=== PATIENT | male | born 1995 | race Caucasian/White ===

== ENCOUNTER 2018-04-30 19:27 | Inpatient (IN) | payer SELFPAY ==
[2018-04-30 19:30] VITALS: BMI 37.6
[2018-04-30] MEDS ORDERED: Sodium Chloride 0.9% 1,000 ML IV STA (19:35)
[2018-04-30 20:02] LABS: INR 1.03; PARTIAL THROMBOPLASTIN TIME 22.5 Seconds (25.1-36.5); PROTHROMBIN TIME 11.8 SECONDS (9.4-12.5)
[2018-04-30 20:09] LABS: ALB/GLOB RATIO 1.6 (1.1-1.8); ALBUMIN 4.6 g/dL (3.0-4.8); ALT/SGPT 170 U/L (7-56); AST/SGOT 150 U/L (17-59); BLOOD UREA NITROGEN 16 mg/dL (7-21); CALCIUM 8.6 mg/dL (8.4-10.5); GFR AFRICAN-AMERICAN > 60; GFR NON-AFRICAN AMERICAN > 60
[2018-04-30 20:10] LABS: ARTERIAL BLOOD GAS HCO3 17.1 mmol/L (21-28); ARTERIAL BLOOD GAS O2 CAPACITY 20.4 mL/dl (16-24); ARTERIAL BLOOD GAS O2 CONTENT 20.2 ML/dl (15-23); ARTERIAL BLOOD GAS O2 SAT 99.1 % (95-98); ARTERIAL BLOOD GAS PCO2 47 mm/Hg (35-45); ARTERIAL BLOOD GAS TCO2 18.5 mmol.L (22-28)
--- NOTE | 2018-04-30 20:11 | ED PDOC ---
Arrival/HPI - General Chief Complaint: Substance Abuse Time Seen by Provider: 04/30/18 19:34 Historian: Patient EM Caveat: Altered Mental Status - History of Present Illness Narrative History of Present Illness (Text): 23 y/o M w/ no significant history presenting with altered mental status. Patient was brought in by EMS after a call(patient's friend)as a result of the patient being found at home unresponsive. The patient was give 4mg of intranasal Narcan that initially was unsuccessful, but eventually caused the patient to awaken. According to EMS, there was no bags of heroin or other illicit substances present at the house. A more complete HPI is unable to be obtained due to the patient's clinical condition Time/Duration: Prior to Arrival Symptom Course: Intermittent Quality: Unable to Describe Severity Level: Moderate Activities at Onset: Rest Context: Home Past Medical History - Provider Review Nursing Documentation Reviewed: Yes - Travel History Have you recently traveled outside [place] w/in the past 3 mons?: No - Infectious Disease Hx of Infectious Diseases: None - Tetanus Immunization Tetanus Immunization: Other - Past Medical History Past Medical History: No Previous - Psychiatric Hx Depression: No Hx Emotional Abuse: No Hx Physical Abuse: No Hx Substance Use: Yes - Past Surgical History Past Surgical History: No Previous - Anesthesia Hx Anesthesia: No - Suicidal Assessment Feels Threatened In Home Enviroment: No Family/Social History - Physician Review Nursing Documentation Reviewed: Yes Family/Social History: Unknown Family HX Smoking Status: Light Smoker < 10 Cigarettes Daily Hx Alcohol Use: Yes Frequency of alcohol use: Socially Hx Substance Use: Yes Substance used: marijuana; heroine Hx Substance Use Treatment: No Allergies/Home Meds Allergies/Adverse Reactions: Allergies No Known Allergies Allergy (Verified 01/12/14 13:56) Review of Systems - Review of Systems Systems not reviewed;Unavailable: Altered Mental Status Physical Exam Vital Signs Reviewed: Yes Vital Signs Pulse Resp BP Pulse Ox 04/30/18 21:57 108 H 23 122/51 L 100 04/30/18 19:40 112 H 16 102/83 79 L Blood Pressure: Normal Pulse: Tachycardic Respiratory Rate: Normal Appearance: Positive for: Non-Toxic, Comfortable Mental Status: Positive for: Confused - Systems Exam Head: Present: Atraumatic, Normocephalic Pupils: Present: Sluggish Extroacular Muscles: Present: EOMI Conjunctiva: Present: Normal Mouth: Present: Moist Mucous Membranes Neck: Present: Normal Range of Motion. No: Meningeal Signs, MIDLINE TENDERNESS Respiratory/Chest: Present: Clear to Auscultation, Good Air Exchange. No: Respiratory Distress Cardiovascular: Present: Regular Rate and Rhythm, Normal S1, S2 Abdomen: Present: Normal Bowel Sounds. No: Tenderness, Distention, Peritoneal Signs Upper Extremity: Present: Normal Inspection Skin: Present: Warm, Dry, Normal Color, Other (No track marsh seen within antecubital fossa) Psychiatric: Present: Lethargic Medical Decision Making ED Course and Treatment: Impression 23M w/ h/o substance abuse presenting for heroin overdose Differential Diagnoses Includes But is not Limited to: Opiate Intoxication Sepsis Plan --Labs --IVF --CXR --CT head W/O contrast --UA --UDS 04/30/18 21:33 Labs reviewed with leukocytosis noted to 15, ABG consistent with metabolic acidosis. Zosyn ordered. Patient noted to desaturate to mid 80s off non- rebreather. 0.4mg Narcan given. Spoke to Dr. Price(copra processor) who will come down to see the patient. 04/30/18 21:37 Dr. Levy evaluates patient and accepts patient onto his service. He requests Narcan drip for now. CT Head Without Intravenous Contrast reviewed by radiologist, shows: Date of Exam: 30 Apr 2018 EDT IMPRESSION: No acute intracranial abnormality. EKG: Ordered, reviewed, and independently interpreted the EKG. Interpretation : Sinus tachycardia at 118. - Lab Interpretations Microbiology Results: Microbiology Results 04/30/18 21:18 Blood Blood Culture - Preliminary NO GROWTH AFTER 24 HOURS 04/30/18 20:53 Blood Blood Culture - Preliminary NO GROWTH AFTER 24 HOURS Lab Results: 04/30/18 19:38 04/30/18 19:38 Lab Results 04/30/18 21:16: pO2 79 H, VBG pH 7.17 L*, VBG pCO2 54.0, VBG HCO3 19.7 L, VBG O2 Sat (Calc) 95.1 H, VBG Base Excess -9.2 L 04/30/18 20:00: pCO2 47 H, pO2 125.0 H, HCO3 17.1 L, ABG pH 7.17 L*, ABG Total CO2 18.5 L, ABG O2 Saturation 99.1 H, ABG O2 Content 20.2, ABG Base Excess - 11.4 L, ABG Hemoglobin 15.0, ABG Carboxyhemoglobin 3.6 H, POC ABG HHb (Measured ) 0.9, ABG Methemoglobin 0.7, ABG O2 Capacity 20.4, Hgb O2 Saturation 94.8 L, FiO2 100.0 04/30/18 19:38: Sodium 142, Potassium 3.4 L, Chloride 104, Carbon Dioxide 14 L, Anion Gap 27 H, BUN 16, Creatinine 1.2, Est GFR ( Amer) > 60, Est GFR ( Non-Af Amer) > 60, Random Glucose 269 H, Calcium 8.6, Total Bilirubin 0.3, AST 150 H, ALT 170 H, Alkaline Phosphatase 74, Troponin I < 0.01, Total Protein 7.5 , Albumin 4.6, Globulin 2.9, Albumin/Globulin Ratio 1.6 04/30/18 19:38: PT 11.8, INR 1.03, APTT 22.5 L 04/30/18 19:38: WBC 15.5 H, RBC 5.05, Hgb 15.2, Hct 46.4, MCV 91.9, MCH 30.1, MCHC 32.8, RDW 13.1, Plt Count 216, MPV 11.6 H, Gran % 41.7 L, Lymph % (Auto) 51.7 H, [place] % (Auto) 4.6, Eos % (Auto) 1.1 L, Baso % (Auto) 0.9, Gran # 6.48, Lymph # (Auto) 8.0 H, [place] # (Auto) 0.7 H, Eos # (Auto) 0.2, Baso # (Auto) 0.14 - RAD Interpretation Radiology Orders: 04/30/18 21:06 HEAD W/O CONTRAST [CT] Stat CHEST PORTABLE [RAD] Stat Slitter And Rewinder: Radiologist - EKG Interpretation Interpreted by ED Physician: Yes Type: 12 lead EKG - Medication Orders Current Medication Orders: Discontinued Medications Sodium Chloride (Sodium Chloride 0.9%) 1,000 mls @ 999 mls/hr IV .Q1H1M STA Stop: 04/30/18 20:35 Last Admin: 04/30/18 19:41 Dose: 999 mls/hr eMAR Start Stop Document 04/30/18 19:41 IT (Rec: 04/30/18 19:41 IT [id number]) Intravenous Solution Start Date 04/30/18 Start Time 19:41 Piperacillin Sod/Tazobactam Sod (Zosyn 4.5 Gm In Ns 100ml) 4.5 gm in 100 mls @ 200 mls/hr IVPB STAT STA PRN Reason: Protocol Stop: 04/30/18 21:36 Last Admin: 04/30/18 22:10 Dose: 200 mls/hr eMAR Start Stop Document 04/30/18 22:10 IT (Rec: 04/30/18 22:11 IT [id number]) Intravenous Solution Start Date 04/30/18 Start Time 22:11 Sodium Chloride (Sodium Chloride 0.9%) 1,000 mls @ 125 mls/hr IV .Q8H STA Stop: 05/01/18 08:40 Last Admin: 05/01/18 01:41 Dose: 125 mls/hr eMAR Start Stop Document 05/01/18 01:41 SCHUMACHER (Rec: 05/01/18 05:21 SCHUMACHER [id number]) Intravenous Solution Start Date 05/01/18 Start Time 01:41 Piperacillin Sod/Tazobactam Sod (Zosyn 3.375 In Ns 100ml) 100 mls @ 200 mls/hr IVPB Q8 JANINE Last Admin: 05/01/18 05:18 Dose: 200 mls/hr eMAR Start Stop Document 05/01/18 05:18 SCHUMACHER (Rec: 05/01/18 05:18 SCHUMACHER [id number]) Intravenous Solution Start Date 05/01/18 Start Time 04:25 Potassium Chloride 20 meq/ (Sodium Chloride) 1,010 mls @ 125 mls/hr IV .Q8H5M STA Stop: 05/01/18 08:45 Last Admin: 05/01/18 06:30 Dose: 125 mls/hr eMAR Start Stop Document 05/01/18 06:30 SCHUMACHER (Rec: 05/01/18 07:04 SCHUMACHER [id number]) Intravenous Solution Start Date 05/01/18 Start Time 06:30 Sodium Chloride (Sodium Chloride 0.9%) 1,000 mls @ 125 mls/hr IV .Q8H JANINE Last Admin: 05/02/18 01:27 Dose: 125 mls/hr eMAR Start Stop Document 05/02/18 01:27 FDE (Rec: 05/02/18 01:27 FDE [id number]) Intravenous Solution Start Date 05/02/18 Start Time 01:27 Azithromycin (Zithromax 500mg In Ns) 500 mg in 250 mls @ 167 mls/hr IVPB DAILY JANINE PRN Reason: Protocol Last Admin: 05/01/18 09:02 Dose: 167 mls/hr eMAR Start Stop Document 05/01/18 09:02 [email or web address] (Rec: 05/01/18 09:[email or web address] [facility] [place]) Intravenous Solution Start Date 05/01/18 Start Time 09:02 End Date 05/01/18 End time 10:32 Total Infusion Time 90 Ceftriaxone Sodium (Rocephin 1 Gram Ivpb) 1 gm in 100 mls @ 100 mls/hr IVPB DAILY JANINE PRN Reason: Protocol Last Admin: 05/01/18 09:04 Dose: 100 mls/hr eMAR Start Stop Document 05/01/18 09:04 [email or web address] (Rec: 05/01/18 09:04 [id number] [facility]) Intravenous Solution Start Date 05/01/18 Start Time 09:04 End Date 05/01/18 End time 10:04 Total Infusion Time 60 Lorazepam (Ativan) 1 mg IVP Q4 PRN; Protocol PRN Reason: Symptoms of alcohol withdrawl Ondansetron HCl (Zofran Inj) 4 mg IVP Q6H PRN PRN Reason: Nausea/Vomiting Last Admin: 05/01/18 00:22 Dose: 4 mg IVP Administration Document 05/01/18 00:22 SCHUMACHER (Rec: 05/01/18 00:22 SCHUMACHER [id number]) Charges for Administration # of IVP Administrations 1 Pantoprazole Sodium (Protonix Inj) 40 mg IVP DAILY JANINE Last Admin: 05/01/18 09:01 Dose: 40 mg IVP Administration Document 05/01/18 09:01 [email or web address] (Rec: 05/01/18 09:[email or web address] [facility] [place]) Charges for Administration # of IVP Administrations 1 Potassium Chloride (K-Dur 20 Meq Er Tab) 20 meq PO ONCE ONE Stop: 05/01/18 03:26 Last Admin: 05/01/18 04:25 Dose: 20 meq - Scribe Statement The provider has reviewed the documentation as recorded by the Roxi Everetth All medical record entries made by the Roxi were at my direction and personally dictated by me. I have reviewed the chart and agree that the record accurately reflects my personal performance of the history, physical exam, medical decision making, and the department course for this patient. I have also personally directed, reviewed, and agree with the discharge instructions and disposition. Disposition/Present on Arrival - Present on Arrival Any Indicators Present on Arrival: No History of DVT/PE: No History of Uncontrolled Diabetes: No Urinary Catheter: No History of Decub. Ulcer: No History Surgical Site Infection Following: None - Disposition Have Diagnosis and Disposition been Completed?: Yes Diagnosis: Opioid abuse with intoxication Disposition: HOSPITALIZED Disposition Time: 20:20 Patient Plan: ICU Condition: GOOD
[2018-04-30 20:13] LABS: HEMOGLOBIN 15.2 g/dL (14.0-18.0); MEAN CELL VOLUME 91.9 fl (80.0-105.0); MEAN CORPUSCULAR HEMOGLOBIN 30.1 pg (25.0-35.0); MEAN CORPUSCULAR HGB CONC 32.8 g/dl (31.0-37.0); RBC 5.05 10^6/uL (3.5-6.1); RED CELL DISTRIBUTION WIDTH 13.1 % (11.5-14.5); WHITE BLOOD COUNT 15.5 10^3/ul (4.5-11.0)
[2018-04-30 20:13] LABS: ARTERIAL BLOOD GAS PH 7.17 (7.35-7.45)
[2018-04-30 20:14] LABS: BASO # 0.14 K/mm3 (0.0-2.0); BASO % 0.9 % (0.0-3.0); EOS # 0.2 (0.0-0.7); EOS % 1.1 % (1.5-5.0); GRAN # 6.48 (1.4-6.5); GRAN % 41.7 % (50.0-68.0); LYMPH % 51.7 % (22.0-35.0); MEAN PLATELET VOLUME 11.6 fl (7.0-11.0); MONO # 0.7 (0.1-0.6); MONO % 4.6 % (1.0-6.0)
[2018-04-30 20:20] LABS: TROPONIN I < 0.01 ng/mL
[2018-04-30] MEDS ORDERED: Piperacill/Tazo 4.5gm in NS 4.5 GM/100 ML BAG IVPB STA (21:07)
[2018-04-30] MEDS ORDERED: Naloxone 0.4 mg/ml Inj (Adult) ONE (21:21)
[2018-04-30 21:33] LABS: VENOUS BLOOD GAS BASE EXCESS -9.2 mmol/L (0.0-2.0); VENOUS BLOOD GAS PO2 79 mm/Hg (30-55)
[2018-04-30 21:38] LABS: VENOUS BLOOD PH 7.17 (7.32-7.43)
[2018-04-30 22:16] LABS: VENOUS BLOOD GAS PO2 98 mm/Hg (30-55)
[2018-05-01] MEDS ORDERED: Sodium Chloride 0.9% 1,000 ML IV STA (00:41)
[2018-05-01] MEDS ORDERED: Piperacillin/Tazobact 3.375 gm Inj IVPB SCH (00:45)
[2018-05-01 02:09] LABS: VENOUS BLOOD GAS BASE EXCESS -3.3 mmol/L (0.0-2.0); VENOUS BLOOD GAS PO2 61 mm/Hg (30-55); VENOUS BLOOD PH 7.28 (7.32-7.43)
[2018-05-01 02:21] LABS: ARTERIAL BLOOD GAS HCO3 22.6 mmol/L (21-28); ARTERIAL BLOOD GAS PCO2 48 mm/Hg (35-45); ARTERIAL BLOOD GAS PH 7.28 (7.35-7.45); ARTERIAL BLOOD GAS TCO2 24.1 mmol.L (22-28)
--- NOTE | 2018-05-01 03:08 | CP.PCM.HP ---
<[facility]ell - Last Filed: 05/01/18 05:43> History of Present Illness - History of Present Illness History of Present Illness: Moses Sewell, PGY-1, History and Physical note for Dr. Archibald CC: heroin overdose 23 year old obese male with no past medical history presents with altered mental status. Patient was brought in by EMS after a call as a result of the patient being found at home unresponsive. The patient was given 4 mg of intranasal narcan that was initially unsuccessful as per ED. On presentation, patient was AAOx3 but lethargic. Patient vomited once in front of me which had some blood clots and tried to defecated but was unsuccessful. Patient reports his friends and him were drinking on the afternoon of 04/30 and patient tried heroin for the first time. Patient next remembers waking up in EMS and then in the emergency department. Patient reports feeling nauseous on presentation, but denies chest pain, heart palpitations, shortness of breath, constipation, diarrhea, dysuria, hematuria, dizziness, and headache. 12 point ROS was negative except for what was listed above. PMH: denies PSH: denies FMHx: denies SHx: smokes 3 cigarettes a day for 3 years. Reports drinking 3 beers everyday. Reports this was his first episode of recreational drug use. PMD: none Pharmacy: none Insurance: Self-pay Present on Admission - Present on Admission Any Indicators Present on Admission: No History of DVT/PE: No History of Uncontrolled Diabetes: No Review of Systems - Constitutional Constitutional: absent: Anorexia, Chills, Fever - EENT Eyes: absent: Dry Eye Nose/Mouth/Throat: absent: Dry Mouth - Cardiovascular Cardiovascular: absent: Chest Pain, Palpitations - Respiratory Respiratory: absent: Cough, Dyspnea, Hemoptysis - Gastrointestinal Gastrointestinal: Nausea, Vomiting. absent: Abdominal Pain, Constipation - Musculoskeletal Musculoskeletal: absent: Abnormal Gait, Back Pain - Neurological Neurological: absent: Abnormal Gait, Numbness, Tingling - Psychiatric Psychiatric: absent: Anxiety, Depression Past Patient History - Infectious Disease Hx of Infectious Diseases: None - Tetanus Immunizations Tetanus Immunization: Other - Past Social History Smoking Status: Light Smoker < 10 Cigarettes Daily - PSYCHIATRIC Hx Depression: No Hx Emotional Abuse: No Hx Physical Abuse: No Hx Substance Use: Yes - SURGICAL HISTORY Hx Surgeries: No - ANESTHESIA Hx Anesthesia: No Meds Allergies/Adverse Reactions: Allergies Allergy/AdvReac Type Severity Reaction Status Date / Time No Known Allergies Allergy Verified 01/12/14 13:56 Physical Exam - Constitutional Appears: Non-toxic, Other (lethargic) - Head Exam Head Exam: ATRAUMATIC, NORMOCEPHALIC - Eye Exam Eye Exam: EOMI, PERRL (smaller than normal pupils) - Respiratory Exam Respiratory Exam: Wheezes. absent: Chest Wall Tenderness, Respiratory Distress Additional comments: on nonrebreather - Cardiovascular Exam Cardiovascular Exam: Tachycardia - GI/Abdominal Exam GI & Abdominal Exam: Normal Bowel Sounds, Soft - Extremities Exam Extremities exam: Positive for: full ROM - Neurological Exam Neurological exam: Alert, CN II-XII Intact, Oriented x3 Additional comments: lethargic - Psychiatric Exam Additional comments: lethargic - Skin Skin Exam: Dry, Intact, Normal Color Results - Vital Signs Recent Vital Signs: Last Vital Signs Temp 98.6 F 04/30/18 22:34 Pulse 116 H 05/01/18 00:40 Resp 25 H 05/01/18 00:40 BP 144/83 05/01/18 00:00 Pulse Ox 97 05/01/18 00:40 - Labs Result Diagrams: 04/30/18 19:38 04/30/18 19:38 Labs: Laboratory Results - last 24 hr 04/30/18 05/01/18 05/01/18 22:08 01:55 02:00 pCO2 48 H pO2 98 H 61 H 106.0 H HCO3 22.6 ABG pH 7.28 L ABG Total CO2 24.1 ABG O2 Saturation 99.0 H ABG Base Excess -4.4 L ABG Potassium 4.4 VBG pH 7.20 L 7.28 L VBG pCO2 52.0 51.0 VBG HCO3 20.3 L 24.0 VBG Total CO2 21.9 L 25.6 VBG O2 Sat (Calc) 97.8 H 90.6 H VBG Base Excess -8.0 L -3.3 L VBG Potassium 4.2 4.9 Sodium 140.0 140.0 141.0 Chloride 106.0 107.0 110.0 H Glucose 161 H 140 H 129 H Lactate 2.7 H 1.6 1.1 FiO2 21.0 21.0 28.0 Arterial Blood Potassium 4.4 Venous Blood Potassium 4.2 4.9 Assessment & Plan - Assessment and Plan (Free Text) Assessment: 23 year old obese male with no past medical history presents with altered mental status. Patient was brought in by EMS after a call as a result of the patient being found at home unresponsive. Patient was admitted for respiratory distress and altered mental status due to heroin overdose. Plan: Heroin overdose -Patient given 4 bags of narcan on admission. -Tachycardic pulse at 110-116 per this admission. -Respiratory rate: presented with respiratory rate of 16. Last respiratory rate was 25. -O2 saturation on presentation was 79% on RA. Patient is stating at 97% on nonrebreather mask. Patient was stating at 91% on RA on presentation. -CT head: no acute abnormalities. -UDS ordered. -Aspiration precautions. -Nursing swallow evaluation. -Vital signs Q1 -Zofran 4 mg Q6PRN for nausea. -NS at 125 cc/hr -Continue to monitor mental status. Leukocytosis 2/2 to stress response from heroin vs. infection -CXR: no acute abnormalities. Due to patient's body habitus, difficult to evaluate chest x ray, however. -Due to patient's mental status and multiple bouts of vomiting, patient started on zosyn 3.375 gm Q8 for emperic therapy for aspiration pneumonia. -Zofran 4 mg Q6PRN for nausea. Anion gap metabolic acidosis 2/2 dehydration -ABG pH: 7.17 on admission. -Repeat ABG: pH: 7.28, pCO2: 47, pO2: 106, O2 saturation: 99 at FiO2 at 28. -Lactate 2.7 on admission on VBG. -Anion gap: 24 -Delta/delta: 10 -NS 125 cc/hr -Continue to monitor electrolytes. Hypokalemia -K: 3.4 -20 mg KDUR given once. 20 mg of KCl in NS started. Transaminitis likely 2/2 to alcohol abuse -AST: 150, ALT: 170 on admission. Baseline unknown -Follow up hepatitis panel, HIV. -Avoid hepatotoxic drugs and alcohol. -Continue to trend. Elevated Blood glucose 2/2 to stress response vs. diabetes -Random blood glucose: 269 on admission -No history of diabetes or medications for diabetes. -Accucheck Q6 -If glucose levels continue to remain elevated on admission, start low dose sliding scale insulin. Substance Abuse -Counseled and advised cessation of high risk behavior. -CIWA precautions for alcohol abuse. -Ativan PRN DVT prophylaxis: SCD GI prophylaxis: protonix 40 mg IV daily Patient seen and assessed with Dr. Archibald. - Date & Time Date: 05/01/18 Time: 03:12 <Jonathon Archibald - Last Filed: 05/01/18 05:53> Results - Vital Signs Recent Vital Signs: Last Vital Signs Temp 98.1 F 05/01/18 00:46 Pulse 99 H 05/01/18 04:50 Resp 21 05/01/18 04:50 BP 138/81 05/01/18 04:00 Pulse Ox 98 05/01/18 04:50 - Labs Result Diagrams: 04/30/18 19:38 04/30/18 19:38 Labs: Laboratory Results - last 24 hr 04/30/18 05/01/18 05/01/18 22:08 01:55 02:00 pCO2 48 H pO2 98 H 61 H 106.0 H HCO3 22.6 ABG pH 7.28 L ABG Total CO2 24.1 ABG O2 Saturation 99.0 H ABG Base Excess -4.4 L ABG Potassium 4.4 VBG pH 7.20 L 7.28 L VBG pCO2 52.0 51.0 VBG HCO3 20.3 L 24.0 VBG Total CO2 21.9 L 25.6 VBG O2 Sat (Calc) 97.8 H 90.6 H VBG Base Excess -8.0 L -3.3 L VBG Potassium 4.2 4.9 Sodium 140.0 140.0 141.0 Chloride 106.0 107.0 110.0 H Glucose 161 H 140 H 129 H Lactate 2.7 H 1.6 1.1 FiO2 21.0 21.0 28.0 Arterial Blood Potassium 4.4 Venous Blood Potassium 4.2 4.9 Attending/Attestation - Attestation I have personally seen and examined this patient.: Yes I have fully participated in the care of the patient.: Yes I have reviewed all pertinent clinical information: Yes
[2018-05-01] MEDS ORDERED: Potassium Chloride 20 mEq ER Tab PO ONE (03:25)
[2018-05-01] MEDS ORDERED: Piperacillin/Tazobact 3.375 gm 100 ML IVPB SCH (06:00)
[2018-05-01 06:22] LABS: BASO # 0.01 K/mm3 (0.0-2.0); GRAN # 16.71 (1.4-6.5); GRAN % 83.2 % (50.0-68.0); LYMPH % 10.2 % (22.0-35.0); MEAN CELL VOLUME 92.7 fl (80.0-105.0); MEAN CORPUSCULAR HEMOGLOBIN 30.3 pg (25.0-35.0); MEAN CORPUSCULAR HGB CONC 32.7 g/dl (31.0-37.0); MEAN PLATELET VOLUME 11.5 fl (7.0-11.0); MONO # 1.3 (0.1-0.6); MONO % 6.6 % (1.0-6.0); RBC 4.95 10^6/uL (3.5-6.1); RED CELL DISTRIBUTION WIDTH 13.2 % (11.5-14.5); WHITE BLOOD COUNT 20.1 10^3/ul (4.5-11.0)
[2018-05-01 06:26] LABS: ALB/GLOB RATIO 1.3 (1.1-1.8); ALBUMIN 4.5 g/dL (3.0-4.8); ALT/SGPT 188 U/L (7-56); AST/SGOT 113 U/L (17-59); BLOOD UREA NITROGEN 16 mg/dL (7-21); CALCIUM 8.5 mg/dL (8.4-10.5); GFR AFRICAN-AMERICAN > 60; GFR NON-AFRICAN AMERICAN > 60
[2018-05-01 07:48] LABS: URINE BILIRUBIN NEGATIVE (NEGATIVE); URINE BLOOD NEGATIVE (NEGATIVE); URINE GLUCOSE (UA) NEGATIVE (NEGATIVE); URINE LEUKOCYTE ESTERASE NEGATIVE Leu/uL (NEGATIVE); URINE PROTEIN 30 mg/dL (<30 mg/dL); URINE UROBILINOGEN 0.2 E.U./dL (<1 E.U./dL)
[2018-05-01 07:50] LABS: URINE APPEARANCE CLEAR (CLEAR); URINE COLOR YELLOW (YELLOW)
[2018-05-01 08:05] LABS: URINE BACTERIA SMALL (NEG); URINE RBC 0 - 2 /hpf (0-2); URINE WBC 0 - 2 /hpf (0-6)
[2018-05-01 08:31] LABS: BARBITURATES, UR NEGATIVE (NEGATIVE); BENZODIAZEPINES, UR NEGATIVE (NEGATIVE); OPIATES, UR POSITIVE (NEGATIVE); PHENCYCLIDINE, UR NEGATIVE (NEGATIVE)
--- NOTE | 2018-05-01 08:35 | RAD ---
Date of service: 04/30/2018 HISTORY: sob COMPARISON: No prior. FINDINGS: LUNGS: Poor inspiration with low lung volumes, crowded bronchovascular markings and mild bibasilar atelectasis. PLEURA: No significant pleural effusion identified, no pneumothorax apparent. CARDIOVASCULAR: Normal. OSSEOUS STRUCTURES: No significant abnormalities. VISUALIZED UPPER ABDOMEN: Normal. OTHER FINDINGS: None. IMPRESSION: No active disease.
[2018-05-01] MEDS: Sodium Chloride 0.9% 1,000 ML IV SCH ×2 (09:05→17:00)
[2018-05-01] MEDS ORDERED: cefTRIAXone 1 gm 1 GM/100 ML BAG IVPB SCH (10:00)
[2018-05-01] MEDS ORDERED: Azithromycin 500MG/NS 250ml 500 MG/250 ML BAG IVPB SCH (10:00)
--- NOTE | 2018-05-01 10:03 | PN ---
Copied To: Steve Christianson MD Attending MD: Steve Christianson MD DATE: 05/01/2018 ROOFING MACHINE TENDER NOTE SUBJECTIVE: The patient is awake and alert, has no complaints of increased shortness of breath. Does have complaint of mild congestion. Occasional cough. He is on O2 via nasal cannula. No obvious fever, chills. No present nauseousness or vomiting even though when he initially presented to the Emergency Room as a drug overdose, he had significant vomiting with metabolic acidosis and the question was whether there was a component of aspiration. At this time as stated above, awake and alert. Eating breakfast. No acute complaints. PHYSICAL EXAMINATION: VITAL SIGNS: Note that his temperature is 98.3, pulse of 101, respirations are 21, BP is 156/87 and O2 saturation is 99% on 2 liters of nasal cannula. HEENT: Head is atraumatic, normocephalic. Eyes reactive to light. Ears, nose and throat seemed to be within normal limits. NECK: Supple. No JVD. No thyroid enlargement. No lymph nodes. HEART: Has regular rate and rhythm. Normal S1, S2. LUNGS: Reveal good breath sounds bilaterally. ABDOMEN: Soft. Decreased bowel sounds. GENITALIA: Deferred. RECTAL: Deferred. MUSCULOSKELETAL: No joint deformities. EXTREMITIES: Reveal no significant edema. NEUROLOGIC: He seemed to be grossly intact. DATA: As far as his laboratories are concerned, white count is 20.1, hemoglobin is 15, hematocrit 45.9 with platelets of 191,000. Arterial blood gas reveals a pH of 7.28, pCO2 of 48, pO2 106. Sodium is 145, potassium 5.2, chloride 107, CO2 of 23 with a BUN of 16, creatinine 0.9 and a glucose of 113. Last chest x-ray reveals no active disease. IMPRESSION: This patient presented with heroin overdose with altered mental status. There may be a component of aspiration, rule out pneumonia with increased white count and metabolic acidosis. Note that the patient's metabolic acidosis is correcting and altered mental status has corrected as well. The patient is awake and alert. PLAN: As far as our plan, the patient is getting Ativan p.r.n. He is on Protonix as well as Rocephin and IV fluids. The patient is getting Zithromax and has an order for Zofran for any nauseousness or vomiting. Steve Christianson MD [facility] # [id number]
--- NOTE | 2018-05-01 10:31 | CARD ---
APPROVED REPORT Date of service: 04/30/2018 EKG Measurement Heart [id number] <Conclusion> Sinus tachycardia Otherwise normal ECG
--- NOTE | 2018-05-01 12:14 | CT ---
Date of service: 04/30/2018 PROCEDURE: CT HEAD WITHOUT CONTRAST. HISTORY: headache COMPARISON: None available. TECHNIQUE: Axial computed tomography images were obtained through the head/brain without intravenous contrast. Radiation dose: Total exam DLP = 1187.37 mGy-cm. This CT exam was performed using one or more of the following dose reduction techniques: Automated exposure control, adjustment of the mA and/or kV according to patient size, and/or use of iterative reconstruction technique. FINDINGS: HEMORRHAGE: No no acute intracranial hemorrhage. BRAIN: No mass effect or edema. No atrophy or chronic microvascular ischemic changes. VENTRICLES: Unremarkable. No hydrocephalus. CALVARIUM: Unremarkable. PARANASAL SINUSES: Mild mucosal thickening seen in the inferior margins both maxillary antra. MASTOID AIR CELLS: Unremarkable as visualized. No inflammatory changes. OTHER FINDINGS: None. IMPRESSION: No acute intracranial hemorrhage.
[2018-05-01 23:46] VITALS: RESP 20
[2018-05-02] MEDS: Sodium Chloride 0.9% 1,000 ML IV SCH (01:27)
[2018-05-02 06:03] VITALS: BP 142/92; PULSE 83; TEMP 98.7
[2018-05-02 06:06] VITALS: O2SAT 96
--- NOTE | 2018-05-02 06:57 | CP.PCM.PN ---
Objective - Vital Signs/Intake and Output Vital Signs (last 24 hours): Temp Pulse Resp BP Pulse Ox 98.7 F 83 20 142/92 H 96 05/02/18 06:00 05/02/18 06:00 05/02/18 06:00 05/02/18 06:00 05/02/18 06:00 Intake and Output: 05/01/18 05/02/18 18:59 06:59 Intake Total 800 1920 Output Total 1600 700 Balance -800 1220 - Medications Medications: Current Medications Sodium Chloride (Sodium Chloride 0.9%) 1,000 mls @ 125 mls/hr IV .Q8H JANINE Last Admin: 05/02/18 01:27 Dose: 125 mls/hr Azithromycin (Zithromax 500mg In Ns) 500 mg in 250 mls @ 167 mls/hr IVPB DAILY JANINE PRN Reason: Protocol Last Admin: 05/01/18 09:02 Dose: 167 mls/hr Ceftriaxone Sodium (Rocephin 1 Gram Ivpb) 1 gm in 100 mls @ 100 mls/hr IVPB DAILY JANINE PRN Reason: Protocol Last Admin: 05/01/18 09:04 Dose: 100 mls/hr Lorazepam (Ativan) 1 mg IVP Q4 PRN; Protocol PRN Reason: Symptoms of alcohol withdrawl Ondansetron HCl (Zofran Inj) 4 mg IVP Q6H PRN PRN Reason: Nausea/Vomiting Last Admin: 05/01/18 00:22 Dose: 4 mg Pantoprazole Sodium (Protonix Inj) 40 mg IVP DAILY [facility] Last Admin: 05/01/18 09:01 Dose: 40 mg - Labs Labs: 05/01/18 05:50 05/01/18 05:50 PT 11.8 SECONDS (9.4-12.5) 04/30/18 19:38 INR 1.03 04/30/18 19:38 APTT 22.5 Seconds (25.1-36.5) L 04/30/18 19:38
[2018-05-02 07:35] LABS: BASO # 0.01 K/mm3 (0.0-2.0); BASO % 0.1 % (0.0-3.0); EOS # 0.1 (0.0-0.7); EOS % 1.4 % (1.5-5.0); GRAN # 5.63 (1.4-6.5); GRAN % 62.2 % (50.0-68.0); HEMOGLOBIN 13.3 g/dL (14.0-18.0); LYMPH # 2.6 (1.2-3.4); LYMPH % 29.1 % (22.0-35.0); MEAN CELL VOLUME 90.5 fl (80.0-105.0); MEAN CORPUSCULAR HEMOGLOBIN 29.4 pg (25.0-35.0); MEAN CORPUSCULAR HGB CONC 32.5 g/dl (31.0-37.0); MEAN PLATELET VOLUME 11.2 fl (7.0-11.0); MONO # 0.7 (0.1-0.6); MONO % 7.2 % (1.0-6.0); RBC 4.52 10^6/uL (3.5-6.1); RED CELL DISTRIBUTION WIDTH 12.9 % (11.5-14.5); WHITE BLOOD COUNT 9.1 10^3/ul (4.5-11.0)
[2018-05-02 08:05] LABS: LDL CHOLESTEROL 130 mg/dL (0-129)
[2018-05-02 08:20] LABS: HEPATITIS B SURFACE AG Negative (NEGATIVE)
[2018-05-02 08:26] LABS: HEPATITIS A IGM NEGATIVE (NEGATIVE); HEPATITIS B CORE AB NEGATIVE (NEGATIVE)
[2018-05-02 08:32] LABS: ALB/GLOB RATIO 1.3 (1.1-1.8); ALBUMIN 3.8 g/dL (3.0-4.8); ALT/SGPT 112 U/L (7-56); AST/SGOT 39 U/L (17-59); BLOOD UREA NITROGEN 13 mg/dL (7-21); CALCIUM 8.6 mg/dL (8.4-10.5); GFR AFRICAN-AMERICAN > 60; GFR NON-AFRICAN AMERICAN > 60; HDL CHOLESTEROL 28 mg/dL (29-60)
[2018-05-02 08:37] LABS: HEPATITIS C ANTIBODY NEGATIVE (NEGATIVE)
--- NOTE | 2018-05-02 10:02 | CP.PCM.DIS ---
<RandyMonty - Last Filed: 05/02/18 11:14> Provider - Provider Date of Admission: 04/30/18 21:40 Attending physician: Tuan Rankin MD Primary care physician: none Consults: Cane Pusher Time Spent in preparation of Discharge (in minutes): 45 Hospital Course - Lab Results Lab Results: Micro Results 05/01/18 07:30 Urine,Clean Catch Urine Culture - Final No Growth (<1,000 CFU/ML) Most Recent Lab Values WBC 9.1 10^3/ul (4.5-11.0) D 05/02/18 06:00 RBC 4.52 10^6/uL (3.5-6.1) 05/02/18 06:00 Hgb 13.3 g/dL (14.0-18.0) L 05/02/18 06:00 Hct 40.9 % (42.0-52.0) L 05/02/18 06:00 MCV 90.5 fl (80.0-105.0) 05/02/18 06:00 MCH 29.4 pg (25.0-35.0) 05/02/18 06:00 MCHC 32.5 g/dl (31.0-37.0) 05/02/18 06:00 RDW 12.9 % (11.5-14.5) 05/02/18 06:00 Plt Count 159 10^3/uL (120.0-450.0) 05/02/18 06:00 MPV 11.2 fl (7.0-11.0) H 05/02/18 06:00 Gran % 62.2 % (50.0-68.0) 05/02/18 06:00 Lymph % (Auto) 29.1 % (22.0-35.0) 05/02/18 06:00 [place] % (Auto) 7.2 % (1.0-6.0) H 05/02/18 06:00 Eos % (Auto) 1.4 % (1.5-5.0) L 05/02/18 06:00 Baso % (Auto) 0.1 % (0.0-3.0) 05/02/18 06:00 Gran # 5.63 (1.4-6.5) 05/02/18 06:00 Lymph # (Auto) 2.6 (1.2-3.4) 05/02/18 06:00 [place] # (Auto) 0.7 (0.1-0.6) H 05/02/18 06:00 Eos # (Auto) 0.1 (0.0-0.7) 05/02/18 06:00 Baso # (Auto) 0.01 K/mm3 (0.0-2.0) 05/02/18 06:00 PT 11.8 SECONDS (9.4-12.5) 04/30/18 19:38 INR 1.03 04/30/18 19:38 APTT 22.5 Seconds (25.1-36.5) L 04/30/18 19:38 pCO2 48 mm/Hg (35-45) H 05/01/18 02:00 pO2 106.0 mm/Hg (80-100) H 05/01/18 02:00 HCO3 22.6 mmol/L (21-28) 05/01/18 02:00 ABG pH 7.28 (7.35-7.45) L 05/01/18 02:00 ABG Total CO2 24.1 mmol.L (22-28) 05/01/18 02:00 ABG O2 Saturation 99.0 % (95-98) H 05/01/18 02:00 ABG O2 Content 20.2 ML/dl (15-23) 04/30/18 20:00 ABG Base Excess -4.4 mmol/L (-2.0-3.0) L 05/01/18 02:00 ABG Hemoglobin 15.0 g/dL (11.7-17.4) 04/30/18 20:00 ABG Carboxyhemoglobin 3.6 % (0.5-1.5) H 04/30/18 20:00 POC ABG HHb (Measured) 0.9 % (0-5) 04/30/18 20:00 ABG Methemoglobin 0.7 % (0.0-3.0) 04/30/18 20:00 ABG O2 Capacity 20.4 mL/dl (16-24) 04/30/18 20:00 ABG Potassium 4.4 mmol/L (3.6-5.2) 05/01/18 02:00 VBG pH 7.28 (7.32-7.43) L 05/01/18 01:55 VBG pCO2 51.0 (40-60) 05/01/18 01:55 VBG HCO3 24.0 mmol/l (21-28) 05/01/18 01:55 VBG Total CO2 25.6 mmol.L (22-28) 05/01/18 01:55 VBG O2 Sat (Calc) 90.6 % (40-65) H 05/01/18 01:55 VBG Base Excess -3.3 mmol/L (0.0-2.0) L 05/01/18 01:55 VBG Potassium 4.9 mmol/L (3.6-5.2) 05/01/18 01:55 Hgb O2 Saturation 94.8 % (95.0-98.0) L 04/30/18 20:00 Sodium 141.0 mmol/L (132-148) 05/01/18 02:00 Chloride 110.0 mmol/L (98-107) H 05/01/18 02:00 Glucose 129 mg/dl (75-110) H 05/01/18 02:00 Lactate 1.1 mmol/L (0.7-2.1) 05/01/18 02:00 FiO2 28.0 % 05/01/18 02:00 Sodium 143 mmol/L (132-148) 05/02/18 06:00 Potassium 3.9 mmol/L (3.6-5.0) 05/02/18 06:00 Chloride 106 mmol/L (98-107) 05/02/18 06:00 Carbon Dioxide 28 mmol/L (21-33) 05/02/18 06:00 Anion Gap 13 (10-20) 05/02/18 06:00 BUN 13 mg/dL (7-21) 05/02/18 06:00 Creatinine 0.8 mg/dl (0.8-1.5) 05/02/18 06:00 Est GFR ( Amer) > 60 05/02/18 06:00 Est GFR (Non-Af Amer) > 60 05/02/18 06:00 Random Glucose 90 mg/dL (70-110) 05/02/18 06:00 Calcium 8.6 mg/dL (8.4-10.5) 05/02/18 06:00 Phosphorus 2.4 mg/dL (2.5-4.5) L 05/02/18 06:00 Magnesium 1.9 mg/dL (1.7-2.2) 05/02/18 06:00 Total Bilirubin 0.5 mg/dL (0.2-1.3) 05/02/18 06:00 AST 39 U/L (17-59) 05/02/18 06:00 ALT 112 U/L (7-56) H 05/02/18 06:00 Alkaline Phosphatase 59 U/L (38-126) 05/02/18 06:00 Troponin I < 0.01 ng/mL 04/30/18 19:38 Total Protein 6.6 g/dL (5.8-8.3) 05/02/18 06:00 Albumin 3.8 g/dL (3.0-4.8) 05/02/18 06:00 Globulin 2.8 gm/dL 05/02/18 06:00 Albumin/Globulin Ratio 1.3 (1.1-1.8) 05/02/18 06:00 Triglycerides 125 mg/dL (35-160) 05/02/18 06:00 Cholesterol 178 mg/dL (130-200) 05/02/18 06:00 LDL Cholesterol Direct 130 mg/dL (0-129) H 05/02/18 06:00 HDL Cholesterol 28 mg/dL (29-60) L 05/02/18 06:00 TSH 3rd Generation 1.21 mIU/mL (0.46-4.68) 05/02/18 06:00 Arterial Blood Potassium 4.4 mmol/L (3.6-5.2) 05/01/18 02:00 Venous Blood Potassium 4.9 mmol/L (3.6-5.2) 05/01/18 01:55 Urine Color Yellow (YELLOW) 05/01/18 07:30 Urine Appearance Clear (CLEAR) 05/01/18 07:30 Urine pH 6.0 (4.7-8.0) 05/01/18 07:30 Ur Specific [place] 1.025 (1.005-1.035) 05/01/18 07:30 Urine Protein 30 mg/dL (<30 mg/dL) H 05/01/18 07:30 Urine Glucose (UA) Negative mg/dL (NEGATIVE) 05/01/18 07:30 Urine Ketones Negative mg/dL (NEGATIVE) 05/01/18 07:30 Urine Blood Negative (NEGATIVE) 05/01/18 07:30 Urine Nitrate Negative (NEGATIVE) 05/01/18 07:30 Urine Bilirubin Negative (NEGATIVE) 05/01/18 07:30 Urine Urobilinogen 0.2 E.U./dL (<1 E.U./dL) 05/01/18 07:30 Ur Leukocyte Esterase Negative Judy/uL (NEGATIVE) 05/01/18 07:30 Urine RBC 0 - 2 /hpf (0-2) 05/01/18 07:30 Urine WBC 0 - 2 /hpf (0-6) 05/01/18 07:30 Ur Epithelial Cells None /hpf (0-5) 05/01/18 07:30 Urine Bacteria Small (NEG) 05/01/18 07:30 Urine Opiates Screen Positive (NEGATIVE) H 05/01/18 07:30 Urine Methadone Screen Negative (NEGATIVE) 05/01/18 07:30 Ur Barbiturates Screen Negative (NEGATIVE) 05/01/18 07:30 Ur Phencyclidine Scrn Negative (NEGATIVE) 05/01/18 07:30 Ur Amphetamines Screen Negative (NEGATIVE) 05/01/18 07:30 U Benzodiazepines Scrn Negative (NEGATIVE) 05/01/18 07:30 U Oth Cocaine Metabols Negative (NEGATIVE) 05/01/18 07:30 U Cannabinoids Screen Negative (NEGATIVE) 05/01/18 07:30 Hepatitis A IgM Ab Negative (NEGATIVE) 05/01/18 05:50 Hep Bs Antigen Negative (NEGATIVE) 05/01/18 05:50 Hep B Core IgM Ab Negative (NEGATIVE) 05/01/18 05:50 Hepatitis C Antibody Negative (NEGATIVE) 05/01/18 05:50 - Hospital Course Hospital Course: Upon Admission: 23 year old obese male with no past medical history presents with altered mental status. Patient was brought in by EMS after a call as a result of the patient being found at home unresponsive. Patient was admitted for respiratory distress and altered mental status due to heroin overdose. Patient did not respond to narcan treatment. Hospital Course; Patient got admitted to ICU for altered mental status, lactic acidosis, electrolyte imbalance due to heroin overdose. CT head showed no acute abnormalities. Patient was on cardiac cath rn, on nonrebreather mask, IV fuids, zofran. Due to patient's mental status and multiple bouts of vomiting, patient started on zosyn 3.375 gm Q8 for emperic therapy for aspiration pneumonia. WBCs 20.1, Lactate 2.7, pH, 7.17anion gap 24. CXR showed no acute abnormalities. urine drug screen was positive for opiates. Urine and blood cultures are negative for bacteria. After patient's stabilization, he was transferred to medical floor where IV antibiotics rocephin and zithromax given, continued IV fluids. Patient felt better today, ambulating in the room, no fever, stable vital signs. Upon Discharge: Patient was counseled for substance abuse and advised cessation of high risk behavior. Patient was counseled for weight loss and follow healthy diet and regular exercise regimen to decrease mortality Patient to find a PMD as he does not have one and follow as outpatient within 7 days upon discharge Patient to take medications as prescribed: - Levofloxacin 500mg 1 tab by mouth once a day for five days If symptoms reoccur, return to nearest emergency department Discharge planning was conducted with patient including outpatient follow up, medication reconciliation, and signs and symptoms to be aware of for return to emergency department. Patient was in understanding and able to recall instructions back to primary team. Patient was deemed to be medically optimized for discharge by consultants involved in her care as well as her primary medical team. For further details regarding hospital stay please refer to full chart. - Date & Time of H&P Date of H&P: 05/02/18 Time of H&P: 10:15 Discharge Exam - Head Exam Head Exam: ATRAUMATIC, NORMOCEPHALIC - Eye Exam Eye Exam: EOMI, Normal appearance, PERRL Pupil Exam: NORMAL ACCOMODATION, PERRL - ENT Exam ENT Exam: Mucous Membranes Moist, Normal Exam, Normal External Ear Exam - Neck Exam Neck exam: Full Rom, Normal Inspection - Respiratory Exam Respiratory Exam: Clear to PA & Lateral, NORMAL BREATHING PATTERN - Cardiovascular Exam Cardiovascular Exam: REGULAR RHYTHM, +S1, +S2 - GI/Abdominal Exam GI & Abdominal Exam: Normal Bowel Sounds, Soft - Rectal Exam Rectal Exam: NORMAL INSPECTION - Extremities Exam Extremities exam: full ROM - Back Exam Back exam: FULL ROM - Neurological Exam Neurological exam: Alert, CN II-XII Intact, Normal Gait, Oriented x3, Reflexes Normal - Psychiatric Exam Psychiatric exam: Normal Affect, Normal Mood - Skin Skin Exam: Dry, Intact, Normal Color, Warm Discharge Plan - Discharge Medications Prescriptions: levoFLOXacin [Levaquin] 500 mg PO DAILY #5 tab - Follow Up Plan Condition: GOOD Disposition: HOME/ ROUTINE Instructions: Heart Healthy Diet, Levofloxacin (Systemic), Narcotic Overdose ( DC) Additional Instructions: - Please take antibiotics Levaquin 500mg 1 tablet by mouth for 5 days. Prescription provided to the patient. - Please establish a Primary MD with your job. - Please return to emergency room if symptoms reoccur. <Tuan Rankin - Last Filed: 05/02/18 18:39> Provider - Provider Date of Admission: 04/30/18 21:40 Attending physician: Tuan Rankin MD Hospital Course - Lab Results Lab Results: Micro Results 05/01/18 00:12 Naris MRSA Culture (Admit) - Final MRSA NOT DETECTED 05/01/18 07:30 Urine,Clean Catch Urine Culture - Final No Growth (<1,000 CFU/ML) Most Recent Lab Values WBC 9.1 10^3/ul (4.5-11.0) D 05/02/18 06:00 RBC 4.52 10^6/uL (3.5-6.1) 05/02/18 06:00 Hgb 13.3 g/dL (14.0-18.0) L 05/02/18 06:00 Hct 40.9 % (42.0-52.0) L 05/02/18 06:00 MCV 90.5 fl (80.0-105.0) 05/02/18 06:00 MCH 29.4 pg (25.0-35.0) 05/02/18 06:00 MCHC 32.5 g/dl (31.0-37.0) 05/02/18 06:00 RDW 12.9 % (11.5-14.5) 05/02/18 06:00 Plt Count 159 10^3/uL (120.0-450.0) 05/02/18 06:00 MPV 11.2 fl (7.0-11.0) H 05/02/18 06:00 Gran % 62.2 % (50.0-68.0) 05/02/18 06:00 Lymph % (Auto) 29.1 % (22.0-35.0) 05/02/18 06:00 [place] % (Auto) 7.2 % (1.0-6.0) H 05/02/18 06:00 Eos % (Auto) 1.4 % (1.5-5.0) L 05/02/18 06:00 Baso % (Auto) 0.1 % (0.0-3.0) 05/02/18 06:00 Gran # 5.63 (1.4-6.5) 05/02/18 06:00 Lymph # (Auto) 2.6 (1.2-3.4) 05/02/18 06:00 [place] # (Auto) 0.7 (0.1-0.6) H 05/02/18 06:00 Eos # (Auto) 0.1 (0.0-0.7) 05/02/18 06:00 Baso # (Auto) 0.01 K/mm3 (0.0-2.0) 05/02/18 06:00 PT 11.8 SECONDS (9.4-12.5) 04/30/18 19:38 INR 1.03 04/30/18 19:38 APTT 22.5 Seconds (25.1-36.5) L 04/30/18 19:38 pCO2 48 mm/Hg (35-45) H 05/01/18 02:00 pO2 106.0 mm/Hg (80-100) H 05/01/18 02:00 HCO3 22.6 mmol/L (21-28) 05/01/18 02:00 ABG pH 7.28 (7.35-7.45) L 05/01/18 02:00 ABG Total CO2 24.1 mmol.L (22-28) 05/01/18 02:00 ABG O2 Saturation 99.0 % (95-98) H 05/01/18 02:00 ABG O2 Content 20.2 ML/dl (15-23) 04/30/18 20:00 ABG Base Excess -4.4 mmol/L (-2.0-3.0) L 05/01/18 02:00 ABG Hemoglobin 15.0 g/dL (11.7-17.4) 04/30/18 20:00 ABG Carboxyhemoglobin 3.6 % (0.5-1.5) H 04/30/18 20:00 POC ABG HHb (Measured) 0.9 % (0-5) 04/30/18 20:00 ABG Methemoglobin 0.7 % (0.0-3.0) 04/30/18 20:00 ABG O2 Capacity 20.4 mL/dl (16-24) 04/30/18 20:00 ABG Potassium 4.4 mmol/L (3.6-5.2) 05/01/18 02:00 VBG pH 7.28 (7.32-7.43) L 05/01/18 01:55 VBG pCO2 51.0 (40-60) 05/01/18 01:55 VBG HCO3 24.0 mmol/l (21-28) 05/01/18 01:55 VBG Total CO2 25.6 mmol.L (22-28) 05/01/18 01:55 VBG O2 Sat (Calc) 90.6 % (40-65) H 05/01/18 01:55 VBG Base Excess -3.3 mmol/L (0.0-2.0) L 05/01/18 01:55 VBG Potassium 4.9 mmol/L (3.6-5.2) 05/01/18 01:55 Hgb O2 Saturation 94.8 % (95.0-98.0) L 04/30/18 20:00 Sodium 141.0 mmol/L (132-148) 05/01/18 02:00 Chloride 110.0 mmol/L (98-107) H 05/01/18 02:00 Glucose 129 mg/dl (75-110) H 05/01/18 02:00 Lactate 1.1 mmol/L (0.7-2.1) 05/01/18 02:00 FiO2 28.0 % 05/01/18 02:00 Sodium 143 mmol/L (132-148) 05/02/18 06:00 Potassium 3.9 mmol/L (3.6-5.0) 05/02/18 06:00 Chloride 106 mmol/L (98-107) 05/02/18 06:00 Carbon Dioxide 28 mmol/L (21-33) 05/02/18 06:00 Anion Gap 13 (10-20) 05/02/18 06:00 BUN 13 mg/dL (7-21) 05/02/18 06:00 Creatinine 0.8 mg/dl (0.8-1.5) 05/02/18 06:00 Est GFR ( Amer) > 60 05/02/18 06:00 Est GFR (Non-Af Amer) > 60 05/02/18 06:00 Random Glucose 90 mg/dL (70-110) 05/02/18 06:00 Hemoglobin A1c 5.7 % (4.2-6.5) 05/02/18 06:00 Calcium 8.6 mg/dL (8.4-10.5) 05/02/18 06:00 Phosphorus 2.4 mg/dL (2.5-4.5) L 05/02/18 06:00 Magnesium 1.9 mg/dL (1.7-2.2) 05/02/18 06:00 Total Bilirubin 0.5 mg/dL (0.2-1.3) 05/02/18 06:00 AST 39 U/L (17-59) 05/02/18 06:00 ALT 112 U/L (7-56) H 05/02/18 06:00 Alkaline Phosphatase 59 U/L (38-126) 05/02/18 06:00 Troponin I < 0.01 ng/mL 04/30/18 19:38 Total Protein 6.6 g/dL (5.8-8.3) 05/02/18 06:00 Albumin 3.8 g/dL (3.0-4.8) 05/02/18 06:00 Globulin 2.8 gm/dL 05/02/18 06:00 Albumin/Globulin Ratio 1.3 (1.1-1.8) 05/02/18 06:00 Triglycerides 125 mg/dL (35-160) 05/02/18 06:00 Cholesterol 178 mg/dL (130-200) 05/02/18 06:00 LDL Cholesterol Direct 130 mg/dL (0-129) H 05/02/18 06:00 HDL Cholesterol 28 mg/dL (29-60) L 05/02/18 06:00 TSH 3rd Generation 1.21 mIU/mL (0.46-4.68) 05/02/18 06:00 Arterial Blood Potassium 4.4 mmol/L (3.6-5.2) 05/01/18 02:00 Venous Blood Potassium 4.9 mmol/L (3.6-5.2) 05/01/18 01:55 Urine Color Yellow (YELLOW) 05/01/18 07:30 Urine Appearance Clear (CLEAR) 05/01/18 07:30 Urine pH 6.0 (4.7-8.0) 05/01/18 07:30 Ur Specific [place] 1.025 (1.005-1.035) 05/01/18 07:30 Urine Protein 30 mg/dL (<30 mg/dL) H 05/01/18 07:30 Urine Glucose (UA) Negative mg/dL (NEGATIVE) 05/01/18 07:30 Urine Ketones Negative mg/dL (NEGATIVE) 05/01/18 07:30 Urine Blood Negative (NEGATIVE) 05/01/18 07:30 Urine Nitrate Negative (NEGATIVE) 05/01/18 07:30 Urine Bilirubin Negative (NEGATIVE) 05/01/18 07:30 Urine Urobilinogen 0.2 E.U./dL (<1 E.U./dL) 05/01/18 07:30 Ur Leukocyte Esterase Negative Judy/uL (NEGATIVE) 05/01/18 07:30 Urine RBC 0 - 2 /hpf (0-2) 05/01/18 07:30 Urine WBC 0 - 2 /hpf (0-6) 05/01/18 07:30 Ur Epithelial Cells None /hpf (0-5) 05/01/18 07:30 Urine Bacteria Small (NEG) 05/01/18 07:30 Urine Opiates Screen Positive (NEGATIVE) H 05/01/18 07:30 Urine Methadone Screen Negative (NEGATIVE) 05/01/18 07:30 Ur Barbiturates Screen Negative (NEGATIVE) 05/01/18 07:30 Ur Phencyclidine Scrn Negative (NEGATIVE) 05/01/18 07:30 Ur Amphetamines Screen Negative (NEGATIVE) 05/01/18 07:30 U Benzodiazepines Scrn Negative (NEGATIVE) 05/01/18 07:30 U Oth Cocaine Metabols Negative (NEGATIVE) 05/01/18 07:30 U Cannabinoids Screen Negative (NEGATIVE) 05/01/18 07:30 Hepatitis A IgM Ab Negative (NEGATIVE) 05/01/18 05:50 Hep Bs Antigen Negative (NEGATIVE) 05/01/18 05:50 Hep B Core IgM Ab Negative (NEGATIVE) 05/01/18 05:50 Hepatitis C Antibody Negative (NEGATIVE) 05/01/18 05:50 Attending/Attestation - Attestation I have personally seen and examined this patient.: Yes I have fully participated in the care of the patient.: Yes I have reviewed all pertinent clinical information, including history, physical exam and plan: Yes Notes (Text): 05/02/18 18:36 Attending note; Patient seen and examined with resident. Patient is a 23-year-old male with no significant past medical history is admitted with altered mental status after heroin abuse. According to the patient this was his first time use. He snorted heroin. Patient is currently alert and awake. Denies any chest pain, cough or shortness of breath. Ambulating fine. Tolerating diet. Patient was treated with antibiotics for possible aspiration. Chest x-rays negative. Currently no wheezing. No cough. No hypoxemia. Leukocytosis resolved. complete drug abuse cessation is strongly advised. Obesity; diet, exercise and weight reduction advised. Patient will follow-up with PMD of choice within insurance coverage. Patient is planning to apply for insurance at work. Currently does not want to follow-up with [facility] [place] clinic.
== END 2018-05-02 08:58 | disposition home or self-care (01) | DRG 917 ==
LOC: ED 19:27 → ERH 21:40 → CCU 22:31 → 2RSO 05-01 12:53
PROVIDERS: ADMIT Internal Medicine; ATTEND Internal Medicine
DX: T40.1X1A Poisoning by heroin, accidental (unintentional), initial encounter (principal); J69.0 Pneumonitis due to inhalation of food and vomit; E87.2 Acidosis; F11.10 Opioid abuse, uncomplicated; E86.0 Dehydration; E87.6 Hypokalemia; F17.210 Nicotine dependence, cigarettes, uncomplicated; E66.9 Obesity, unspecified; Z68.37 Body mass index [BMI] 37.0-37.9, adult

== ENCOUNTER 2018-09-29 19:22 | Emergency (ER) | payer SELFPAY ==
[2018-09-29 20:01] VITALS: BMI 41.7
[2018-09-29 20:02] VITALS: RESP 18
[2018-09-29 20:03] VITALS: TEMP 98.1
--- NOTE | 2018-09-29 21:09 | ED PDOC ---
Arrival/HPI - General Chief Complaint: Substance Abuse Time Seen by Provider: 09/29/18 19:24 Historian: Patient, EMS - History of Present Illness Narrative History of Present Illness (Text): 09/29/18 19:30 March Dg Rizo is a 23 year old male, whose past medical history includes substance abuse, who presents to the emergency department brought in by EMS status post overdose. Patient admits to using heroin earlier today and was found unresponsive. EMS administered Narcan in the field with improvement. On arrival to emergency department, patient is awake and alert. Patient denies any fever, chills, chest pain, shortness of breath, abdominal pain, nausea, vomiting, diarrhea, urinary symptoms, back pain, neck pain, headache, dizziness, or any other complaints. Time/Duration: Prior to Arrival Symptom Onset: Sudden Symptom Course: Unchanged Activities at Onset: Light Context: Home Past Medical History - Provider Review Nursing Documentation Reviewed: Yes - Infectious Disease Hx of Infectious Diseases: None - Tetanus Immunization Tetanus Immunization: OTH - Past Medical History Past Medical History: No Previous - Musculoskeletal/Rheumatological Hx Falls: No - Psychiatric Hx Depression: No Hx Emotional Abuse: No Hx Physical Abuse: No Hx Substance Use: Yes - Past Surgical History Past Surgical History: No Previous - Anesthesia Hx Anesthesia: No Hx Anesthesia Reactions: No Hx Malignant Hyperthermia: No - Suicidal Assessment Feels Threatened In Home Enviroment: No Family/Social History - Physician Review Nursing Documentation Reviewed: Yes Family/Social History: Unknown Family HX Smoking Status: Light Smoker < 10 Cigarettes Daily Hx Alcohol Use: Yes Hx Substance Use: Yes Substance used: marijuana; heroine Hx Substance Use Treatment: No Allergies/Home Meds Allergies/Adverse Reactions: Allergies No Known Allergies Allergy (Verified 01/12/14 13:56) Review of Systems - Physician Review All systems were reviewed & negative as marked: Yes - Review of Systems Constitutional: Normal. absent: Fevers Eyes: Normal ENT: Normal Respiratory: Normal. absent: SOB, Cough Cardiovascular: Normal. absent: Chest Pain Gastrointestinal: Normal. absent: Abdominal Pain, Diarrhea, Nausea, Vomiting Genitourinary Male: Normal. absent: Dysuria, Frequency, Hematuria, Urinary Output Changes Musculoskeletal: Normal. absent: Back Pain, Neck Pain Skin: Normal. absent: Rash Neurological: Normal. absent: Headache, Dizziness Endocrine: Normal Hemo/Lymphatic: Normal Psychiatric: Other (+overdose) Physical Exam Vital Signs Reviewed: Yes Vital Signs Temp Pulse Resp BP Pulse Ox 09/29/18 20:01 98.1 F 106 H 18 103/66 98 Temperature: Afebrile Blood Pressure: Normal Pulse: Regular Respiratory Rate: Normal Appearance: Positive for: Well-Appearing, Non-Toxic, Comfortable Pain Distress: None Mental Status: Positive for: Alert and Oriented X 3 - Systems Exam Head: Present: Atraumatic, Normocephalic Pupils: Present: PERRL Extroacular Muscles: Present: EOMI Conjunctiva: Present: Normal Mouth: Present: Moist Mucous Membranes Neck: Present: Normal Range of Motion Respiratory/Chest: Present: Clear to Auscultation, Good Air Exchange. No: Respiratory Distress, Accessory Muscle Use Cardiovascular: Present: Regular Rate and Rhythm, Normal S1, S2. No: Murmurs Abdomen: No: Tenderness, Distention, Peritoneal Signs Back: Present: Normal Inspection Upper Extremity: Present: Normal Inspection. No: Cyanosis, Edema Lower Extremity: Present: Normal Inspection. No: Edema Neurological: Present: GCS=15, CN II-XII Intact, Speech Normal Skin: Present: Warm, Dry, Normal Color. No: Rashes Psychiatric: Present: Alert, Oriented x 3, Normal Insight, Normal Concentration Medical Decision Making ED Course and Treatment: 09/29/18 19:30 Impression: 23 year old male brought in s/p overdose prior to arrival. Plan: -- EKG -- CT Head -- Labs -- Reassess and disposition Progress Notes: Pt seen on arrival to emergency department. Pt was given Narcan in the field with improvement. Pt awake, alert on arrival to emergency department. Will observe pt for lethargy/desaturation in emergency department until morning. Reviewed EKG, sinus tachycardia at [address]-segment elevations or depressions, no T-wave inversions, normal intervals. 09/30/18 01:44 CT Head: Normal size of the ventricles and extra-axial spaces for the patient's age. Normal white matter tracts of the supratentorial brain. Normal basal ganglia and thalami. Normal brainstem. Normal cerebellum. There is no demonstrated extra-axial, intraparenchymal, or intraventricular hemorrhage. There are no findings of an acute ischemic infarction. Normal calvarium. There is no demonstrated fracture. Normal soft tissue structures. Normal visualized paranasal sinuses. IMPRESSION: Normal unenhanced CT scan of the brain. Electronically signed on Sep 30, 2018 1:29:17 AM EST by: Diane Muro M.D., Certified by KARIS, K, Neuroradiology - Lab Interpretations I have reviewed the lab results: Yes - RAD Interpretation Customer Experience Specialist: ED Physician - EKG Interpretation Interpreted by ED Physician: Yes Type: 12 lead EKG - Scribe Statement The provider has reviewed the documentation as recorded by the Scribe Renu Whitaker Provider Scribe Attestation: All medical record entries made by the Scribe were at my direction and personally dictated by me. I have reviewed the chart and agree that the record accurately reflects my personal performance of the history, physical exam, medical decision making, and the department course for this patient. I have also personally directed, reviewed, and agree with the discharge instructions and disposition. Disposition/Present on Arrival - Present on Arrival Any Indicators Present on Arrival: No History of DVT/PE: No History of Uncontrolled Diabetes: No Urinary Catheter: No History of Decub. Ulcer: No History Surgical Site Infection Following: None - Disposition Have Diagnosis and Disposition been Completed?: Yes Diagnosis: Substance abuse Disposition: HOME/ ROUTINE Disposition Time: 06:30 Condition: IMPROVED Discharge Instructions (ExitCare): Drug Abuse and Drug Addiction (DC), Colitis (DC) Referrals: Melinda Arreaga MD [Medical Doctor] - Follow up with primary Forms: edo ([place])
[2018-09-29 22:19] LABS: ACETAMINOPHEN < 10.0 ug/ml (10.0-20.0); SALICYLATE < 1 mg/dL (2.0-20.0)
[2018-09-29 22:21] LABS: ALB/GLOB RATIO 1.5 (1.1-1.8); ALBUMIN 4.4 g/dL (3.0-4.8); ALT/SGPT 107 U/L (7-56); AST/SGOT 75 U/L (17-59); BLOOD UREA NITROGEN 18 mg/dL (7-21); CALCIUM 9.1 mg/dL (8.4-10.5); GFR NON-AFRICAN AMERICAN > 60
[2018-09-29] MEDS ORDERED: Naloxone 0.4 mg/ml Inj (Adult) IVP STA (22:25)
[2018-09-29 22:31] LABS: BASO # 0.01 K/mm3 (0.0-2.0); BASO % 0.1 % (0.0-3.0); EOS # 0.2 (0.0-0.7); EOS % 1.4 % (1.5-5.0); GRAN # 9.14 (1.4-6.5); HEMOGLOBIN 14.2 g/dL (14.0-18.0); LYMPH # 2.7 (1.2-3.4); LYMPH % 21.8 % (22.0-35.0); MEAN CELL VOLUME 90.6 fl (80.0-105.0); MEAN CORPUSCULAR HEMOGLOBIN 28.9 pg (25.0-35.0); MEAN CORPUSCULAR HGB CONC 31.9 g/dl (31.0-37.0); MEAN PLATELET VOLUME 12.6 fl (7.0-11.0); MONO # 0.5 (0.1-0.6); MONO % 3.7 % (1.0-6.0); RBC 4.91 10^6/uL (3.5-6.1); RED CELL DISTRIBUTION WIDTH 12.8 % (11.5-14.5); WHITE BLOOD COUNT 12.5 10^3/uL (4.5-11.0)
[2018-09-29 23:35] LABS: URINE BILIRUBIN NEGATIVE (NEGATIVE); URINE BLOOD NEGATIVE (NEGATIVE); URINE GLUCOSE (UA) NEGATIVE (NEGATIVE); URINE LEUKOCYTE ESTERASE NEGATIVE Leu/uL (NEGATIVE); URINE PROTEIN TRACE mg/dL (<30 mg/dL); URINE UROBILINOGEN 0.2 E.U./dL (<1 E.U./dL)
[2018-09-29 23:40] LABS: URINE APPEARANCE CLEAR (CLEAR); URINE COLOR YELLOW (YELLOW)
[2018-09-29 23:54] LABS: URINE BACTERIA RARE /hpf; URINE RBC 0 - 2 /hpf (0-2); URINE WBC 0 - 2 /hpf (0-6)
[2018-09-29 23:55] LABS: URINE AMORPHOUS SEDIMENT FEW /hpf
[2018-09-30 00:12] LABS: BARBITURATES, UR NEGATIVE (NEGATIVE); BENZODIAZEPINES, UR NEGATIVE (NEGATIVE); OPIATES, UR POSITIVE (NEGATIVE); PHENCYCLIDINE, UR POSITIVE (NEGATIVE)
[2018-09-30 05:18] VITALS: BP 110/66
[2018-09-30 06:53] VITALS: PULSE 85; O2SAT 100
--- NOTE | 2018-09-30 08:01 | CT ---
Date of service: 09/30/2018 PROCEDURE: CT HEAD WITHOUT CONTRAST. HISTORY: od COMPARISON: 04/30/2018 TECHNIQUE: Axial computed tomography images were obtained through the head/brain without intravenous contrast. Radiation dose: Total exam DLP = 976.99 mGy-cm. This CT exam was performed using one or more of the following dose reduction techniques: Automated exposure control, adjustment of the mA and/or kV according to patient size, and/or use of iterative reconstruction technique. FINDINGS: HEMORRHAGE: No intracranial hemorrhage. BRAIN: No mass effect or edema. No atrophy or chronic microvascular ischemic changes. VENTRICLES: Unremarkable. No hydrocephalus. CALVARIUM: Unremarkable. PARANASAL SINUSES: Unremarkable as visualized. No significant inflammatory changes. MASTOID AIR CELLS: Unremarkable as visualized. No inflammatory changes. OTHER FINDINGS: The report concurs with the preliminary [facility] report IMPRESSION: Normal CT of the Head.
--- NOTE | 2018-09-30 16:02 | CARD ---
APPROVED REPORT Date of service: 09/29/2018 EKG Measurement Heart [id number] <Conclusion> Sinus tachycardia Prolonged QTc
== END 2018-09-30 06:16 | disposition home or self-care (01) ==
LOC: ED 19:22
DX: F19.10 Other psychoactive substance abuse, uncomplicated (principal); F17.210 Nicotine dependence, cigarettes, uncomplicated
CPT/HCPCS: 70450; 80053; 81001; 83735; 85025; 93005; 96374; 99284; G0480; J2310